=== PATIENT | male | born 1945 | race Caucasian/White ===

== ENCOUNTER 2019-05-22 14:45 | Inpatient (IN) | payer MEDICARE, OTHER ==
[~2019-05-22] VITALS: Ht 180.3 cm; Wt 66.2 kg
[2019-05-22 23:30] VITALS: BP 111/55
[2019-05-23] MEDS ORDERED: MORPHINE SULFATE 2 MG/ML CPJ (NOT FOR IM USE) IV PRN (00:15)
[2019-05-23] MEDS ORDERED: NITROGLYCERIN 0.4MG TABLET SL SL PRN (00:15)
[2019-05-23] MEDS ORDERED: ONDANSETRON HCL 4MG TABLET PO PRN (00:15)
[2019-05-23 04:00] VITALS: BP 96/58
[2019-05-23] MEDS ORDERED: ONDANSETRON HCL 4MG/2ML INJ IV PRN (04:00)
[2019-05-23] MEDS ORDERED: OMEP10CA5 PO (04:33)
[2019-05-23] MEDS ORDERED: CARB-31 PO (04:33)
[2019-05-23] MEDS: CEFTRIAXONE 1 G PREMIX 50 ML IV SCH (05:35)
[2019-05-23] MEDS: CARBIDOPA/LEVODOPA 10/100MG TABLET PO SCH ×3 (06:24→21:10)
[2019-05-23] MEDS: PANTOPRAZOLE 40MG DR TABLET PO SCH (06:24)
[2019-05-23 08:20] VITALS: BP 100/49
[2019-05-23] MEDS: HEPARIN 5000 UNITS/ML VIAL SUBCUT SCH ×2 (09:00→21:10)
[2019-05-23] MEDS ORDERED: METOPROLOL TARTRATE 25MG TABLET PO SCH (09:00)
[2019-05-23] MEDS: FERROUS SULFATE 325MG TABLET PO SCH ×2 (10:33→17:52)
[2019-05-23] MEDS: FOLIC ACID/VITAMIN B COMP W-C TABLET PO SCH (10:33)
[2019-05-23] MEDS: CALCIUM CARBONATE 1250MG TABLET (500MG ELEMENTAL CALCIUM) PO SCH ×2 (10:33→17:52)
[2019-05-23] MEDS ORDERED: AMLODIPINE 2.5MG TABLET PO SCH (11:00)
[2019-05-23 12:00] VITALS: BP 107/56
[2019-05-23] MEDS: HYDROCODONE/ACETAMINOPHEN 5/325MG TABLET PO PRN (14:30)
[2019-05-23 15:27] LABS: PROTHROMBIN TIME 10.1 sec (9.6-11.0)
[2019-05-23 15:32] LABS: BASOPHILS % 0.3 % (0.0-2.0); EOSINOPHILS % 0.2 % (0.0-5.0); HEMATOCRIT. 25.1 % (42.0-52.0); HEMOGLOBIN. 8.5 g/dL (14.0-18.0); LYMPHOCYTES % 9.3 % (20.0-50.0); MEAN CORPUSCULAR HEMOGLOBIN 32.6 pg (28.0-32.0); MEAN CORPUSCULAR VOLUME 96.9 fL (80.0-94.0); MEAN PLATELET VOLUME 8.3 fl (7.4-10.4); MONOCYTES % 8.4 % (2.0-8.0); NEUTROPHILS % 81.8 % (40.0-76.0); PLATELET 144 x1000/uL (130-400); RED BLOOD CELL COUNT 2.59 mill/uL (4.7-6.1); RED CELL DISTRIBUTION WIDTH 15.7 % (11.6-14.6)
[2019-05-23 16:00] VITALS: BP 117/55
[2019-05-23 20:00] VITALS: BP 112/52
[2019-05-23] MEDS: TEMAZEPAM 15MG CAPSULE PO PRN (22:12)
[2019-05-24] VITALS (9 sets, daily range): BP systolic 109–143; BP diastolic 49–78
[2019-05-24] MEDS: CEFTRIAXONE 1 G PREMIX 50 ML IV SCH (03:19)
[2019-05-24] MEDS: CARBIDOPA/LEVODOPA 10/100MG TABLET PO SCH ×3 (06:19→21:34)
[2019-05-24] MEDS: PANTOPRAZOLE 40MG DR TABLET PO SCH (06:20)
[2019-05-24] MEDS: AMLODIPINE 2.5MG TABLET PO SCH (09:14)
[2019-05-24] MEDS: FOLIC ACID/VITAMIN B COMP W-C TABLET PO SCH (09:14)
[2019-05-24] MEDS: FERROUS SULFATE 325MG TABLET PO SCH ×2 (09:14→17:04)
[2019-05-24] MEDS: HEPARIN 5000 UNITS/ML VIAL SUBCUT SCH ×2 (09:15→21:00)
[2019-05-24] MEDS: CALCIUM CARBONATE 1250MG TABLET (500MG ELEMENTAL CALCIUM) PO SCH ×2 (09:15→17:04)
[2019-05-24] MEDS: HYDROCODONE/ACETAMINOPHEN 5/325MG TABLET PO PRN ×3 (09:59→21:42)
[2019-05-24 12:12] LABS: BASOPHILS % 0.3 % (0.0-2.0); EOSINOPHILS % 0.2 % (0.0-5.0); HEMATOCRIT. 24.7 % (42.0-52.0); HEMOGLOBIN. 8.2 g/dL (14.0-18.0); LYMPHOCYTES % 11.3 % (20.0-50.0); MEAN CORPUSCULAR HEMOGLOBIN 31.9 pg (28.0-32.0); MEAN CORPUSCULAR VOLUME 96.5 fL (80.0-94.0); MEAN PLATELET VOLUME 7.8 fl (7.4-10.4); MONOCYTES % 6.2 % (2.0-8.0); PLATELET 150 x1000/uL (130-400); RED BLOOD CELL COUNT 2.56 mill/uL (4.7-6.1)
[2019-05-24 12:24] LABS: CHLORIDE 110 mEq/L (98-107)
[2019-05-24 12:33] LABS: PHOSPHORUS 2.3 mg/dL (2.5-4.9)
[2019-05-24] MEDS: SPIRONOLACTONE 25MG TABLET PO SCH (17:04)
[2019-05-24] MEDS: FUROSEMIDE 20MG TABLET PO SCH (21:00)
[2019-05-24] MEDS: ASCORBIC ACID 500 MG TABLET PO SCH (21:34)
[2019-05-25] VITALS (9 sets, daily range): BP systolic 97–133; BP diastolic 40–64
[2019-05-25] MEDS: CEFTRIAXONE 1 G PREMIX 50 ML IV SCH (04:57)
[2019-05-25] MEDS: SPIRONOLACTONE 25MG TABLET PO SCH ×2 (05:54→17:47)
[2019-05-25] MEDS: CARBIDOPA/LEVODOPA 10/100MG TABLET PO SCH ×3 (05:54→22:02)
[2019-05-25] MEDS: PANTOPRAZOLE 40MG DR TABLET PO SCH (05:55)
[2019-05-25] MEDS: FERROUS SULFATE 325MG TABLET PO SCH ×2 (07:50→17:47)
[2019-05-25] MEDS: HEPARIN 5000 UNITS/ML VIAL SUBCUT SCH ×2 (09:00→21:00)
[2019-05-25 09:54] LABS: HEMATOCRIT 26.8 % (42.0-52.0); HEMOGLOBIN 8.9 g/dL (14.0-18.0)
[2019-05-25] MEDS: ZINC SULFATE 220 MG ( 50 ) CAPSULE PO SCH (13:18)
[2019-05-25] MEDS: FOLIC ACID/VITAMIN B COMP W-C TABLET PO SCH (13:18)
[2019-05-25] MEDS: ASCORBIC ACID 500 MG TABLET PO SCH ×2 (13:19→22:02)
[2019-05-25] MEDS: HYDROCODONE/ACETAMINOPHEN 5/325MG TABLET PO PRN (13:19)
[2019-05-25] MEDS: FUROSEMIDE 20MG TABLET PO SCH ×2 (13:19→22:02)
[2019-05-25] MEDS: AMLODIPINE 2.5MG TABLET PO SCH (13:20)
[2019-05-25] MEDS: CALCIUM CARBONATE 1250MG TABLET (500MG ELEMENTAL CALCIUM) PO SCH ×2 (13:20→17:47)
[2019-05-25] MEDS: TEMAZEPAM 15MG CAPSULE PO PRN (22:43)
[2019-05-26] VITALS (8 sets, daily range): BP systolic 110–144; BP diastolic 48–60
[2019-05-26] MEDS: CEFTRIAXONE 1 G PREMIX 50 ML IV SCH (04:33)
[2019-05-26] MEDS: HYDROCODONE/ACETAMINOPHEN 5/325MG TABLET PO PRN ×2 (05:00→14:49)
[2019-05-26] MEDS: CARBIDOPA/LEVODOPA 10/100MG TABLET PO SCH ×3 (06:36→21:16)
[2019-05-26] MEDS: SPIRONOLACTONE 25MG TABLET PO SCH (06:37)
[2019-05-26 06:42] LABS: BASOPHILS % 0.5 % (0.0-2.0); EOSINOPHILS % 0.7 % (0.0-5.0); HEMATOCRIT. 26.3 % (42.0-52.0); HEMOGLOBIN. 8.8 g/dL (14.0-18.0); MEAN CORPUSCULAR HEMOGLOBIN 31.5 pg (28.0-32.0); MEAN CORPUSCULAR VOLUME 94.3 fL (80.0-94.0); MEAN PLATELET VOLUME 7.8 fl (7.4-10.4); MONOCYTES % 7.2 % (2.0-8.0); NEUTROPHILS % 81.6 % (40.0-76.0); PLATELET 171 x1000/uL (130-400); RED BLOOD CELL COUNT 2.79 mill/uL (4.7-6.1); RED CELL DISTRIBUTION WIDTH 16.1 % (11.6-14.6)
[2019-05-26 06:59] LABS: CHLORIDE 106 mEq/L (98-107)
[2019-05-26 07:06] LABS: PHOSPHORUS 2.2 mg/dL (2.5-4.9)
[2019-05-26] MEDS: HEPARIN 5000 UNITS/ML VIAL SUBCUT SCH ×2 (08:31→21:00)
[2019-05-26] MEDS: ZINC SULFATE 220 MG ( 50 ) CAPSULE PO SCH (09:02)
[2019-05-26] MEDS: CALCIUM CARBONATE 1250MG TABLET (500MG ELEMENTAL CALCIUM) PO SCH ×2 (09:02→17:00)
[2019-05-26] MEDS: PANTOPRAZOLE 40MG DR TABLET PO SCH (09:02)
[2019-05-26] MEDS: ASCORBIC ACID 500 MG TABLET PO SCH ×2 (09:03→21:16)
[2019-05-26] MEDS: FUROSEMIDE 20MG TABLET PO SCH (09:03)
[2019-05-26] MEDS: FERROUS SULFATE 325MG TABLET PO SCH ×2 (09:03→17:50)
[2019-05-26] MEDS: FOLIC ACID/VITAMIN B COMP W-C TABLET PO SCH (09:03)
[2019-05-26] MEDS: AMLODIPINE 2.5MG TABLET PO SCH (09:10)
[2019-05-26 11:57] LABS: BASOPHILS % 0.4 % (0.0-2.0); EOSINOPHILS % 0.5 % (0.0-5.0); HEMATOCRIT. 25.4 % (42.0-52.0); HEMOGLOBIN. 8.6 g/dL (14.0-18.0); MEAN CORPUSCULAR HEMOGLOBIN 31.8 pg (28.0-32.0); MEAN CORPUSCULAR VOLUME 94.3 fL (80.0-94.0); MEAN PLATELET VOLUME 7.3 fl (7.4-10.4); MONOCYTES % 6.4 % (2.0-8.0); NEUTROPHILS % 82.7 % (40.0-76.0); PLATELET 160 x1000/uL (130-400); RED CELL DISTRIBUTION WIDTH 15.8 % (11.6-14.6)
[2019-05-26] MEDS ORDERED: BUPIVACAINE/EPINEPH/PF 0.25%/0.0005 10ML ONE (15:13)
[2019-05-26] MEDS ORDERED: VANCOMYCIN HCL 1 GM/VIAL ONE (15:14)
[2019-05-26] MEDS ORDERED: BUPIVACAINE HCL/EPINEPHRINE/PF 0.5%/0.0005 10ML ONE (15:15)
[2019-05-26] MEDS ORDERED: LIDOCAINE HCL/PF 1% 10 MG/ML 5ML VIAL ONE (17:07)
[2019-05-26] MEDS ORDERED: MIDAZOLAM HCL 2 MG/2 ML VIAL ONE (17:07)
[2019-05-26] MEDS ORDERED: SODIUM CHLORIDE 0.9% 10ML VIAL ONE (17:07)
[2019-05-26] MEDS ORDERED: ROCURONIUM BROMIDE 10MG/ML VIAL 5ML IV ONE (17:07)
[2019-05-26] MEDS ORDERED: CEFAZOLIN SODIUM 1000MG/VIAL ONE (17:07)
[2019-05-26] MEDS ORDERED: NEOSTIGMINE METHYLSULFATE 1MG/ML 10 ML VIAL ONE (17:07)
[2019-05-26] MEDS ORDERED: FENTANYL CITRATE/PF 50MCG/ML 2ML VIAL ONE (17:07)
[2019-05-26] MEDS ORDERED: PROPOFOL 200MG/20ML VIAL IV ONE (17:07)
[2019-05-26] MEDS ORDERED: SUCCINYLCHOLINE CHLORIDE 200MG/10ML IV ONE (17:07)
[2019-05-26] MEDS ORDERED: GLYCOPYRROLATE 0.2 MG/ML 2ML VIAL ONE (17:07)
[2019-05-26] MEDS ORDERED: ONDANSETRON HCL 4MG/2ML INJ ONE (17:08)
[2019-05-26] MEDS ORDERED: PHENYLEPHRINE HCL 10 MG/ML 1ML (IV VIAL) IV ONE (17:08)
[2019-05-26] MEDS ORDERED: METOCLOPRAMIDE HCL 10MG/2ML VIAL ONE (17:08)
[2019-05-26] MEDS ORDERED: EPHEDRINE SULFATE 50MG/ML VIAL ONE (17:08)
[2019-05-26] MEDS ORDERED: SODIUM CHLORIDE 0.9% 1,000 ML IV ONE (18:22)
[2019-05-26] MEDS ORDERED: MORPHINE SULFATE 2 MG/ML CPJ (NOT FOR IM USE) IV PRN (18:30)
[2019-05-26] MEDS ORDERED: ONDANSETRON HCL 4MG/2ML INJ IV PRN (18:30)
[2019-05-26] MEDS: HYDROMORPHONE HCL/PF 2MG/ML CPJ IV PRN ×4 (18:55→19:28)
[2019-05-26] MEDS: VANCOMYCIN 1 G PREMIX 200 ML IV SCH (21:16)
[2019-05-26] MEDS: TEMAZEPAM 15MG CAPSULE PO PRN (21:17)
[2019-05-27] VITALS: BP 130/62
[2019-05-27] MEDS: HYDROMORPHONE HCL/PF 2MG/ML CPJ IV PRN (00:09)
[2019-05-27 04:00] VITALS: BP 108/50
[2019-05-27] MEDS: CEFTRIAXONE 1 G PREMIX 50 ML IV SCH (05:12)
[2019-05-27] MEDS: CARBIDOPA/LEVODOPA 10/100MG TABLET PO SCH ×3 (05:12→21:37)
[2019-05-27] MEDS: PANTOPRAZOLE 40MG DR TABLET PO SCH (05:12)
[2019-05-27 07:49] LABS: HEMATOCRIT. 27.3 % (42.0-52.0); HEMOGLOBIN. 9.2 g/dL (14.0-18.0); MEAN CORPUSCULAR HEMOGLOBIN 31.9 pg (28.0-32.0); MEAN CORPUSCULAR VOLUME 94.3 fL (80.0-94.0); MEAN PLATELET VOLUME 7.5 fl (7.4-10.4); PLATELET 160 x1000/uL (130-400); RED BLOOD CELL COUNT 2.89 mill/uL (4.7-6.1); RED CELL DISTRIBUTION WIDTH 15.6 % (11.6-14.6)
[2019-05-27 07:57] LABS: PHOSPHORUS 2.9 mg/dL (2.5-4.9)
[2019-05-27 08:00] VITALS: BP 95/44
[2019-05-27] MEDS: AMLODIPINE 2.5MG TABLET PO SCH (09:00)
[2019-05-27] MEDS: CALCIUM CARBONATE 1250MG TABLET (500MG ELEMENTAL CALCIUM) PO SCH ×2 (09:34→17:00)
[2019-05-27] MEDS: ASCORBIC ACID 500 MG TABLET PO SCH ×2 (09:34→21:37)
[2019-05-27] MEDS: FOLIC ACID/VITAMIN B COMP W-C TABLET PO SCH (09:34)
[2019-05-27] MEDS: ZINC SULFATE 220 MG ( 50 ) CAPSULE PO SCH (09:34)
[2019-05-27] MEDS: FERROUS SULFATE 325MG TABLET PO SCH ×2 (09:34→17:04)
[2019-05-27] MEDS: VANCOMYCIN 1 G PREMIX 200 ML IV SCH (09:37)
[2019-05-27] MEDS: HEPARIN 5000 UNITS/ML VIAL SUBCUT SCH ×2 (09:37→21:00)
[2019-05-27 12:00] VITALS: BP 103/44
[2019-05-27 14:09] LABS: PLATELET ESTIMATE NORMAL
[2019-05-27 16:00] VITALS: BP 100/51
[2019-05-27] MEDS: ACETAMINOPHEN 325MG TABLET PO PRN (18:23)
[2019-05-27 20:00] VITALS: BP 92/49
[2019-05-28] VITALS: BP 103/50
[2019-05-28] MEDS: ACETAMINOPHEN 325MG TABLET PO PRN (02:15)
[2019-05-28] MEDS: CEFTRIAXONE 1 G PREMIX 50 ML IV SCH (03:36)
[2019-05-28 04:00] VITALS: BP 106/51
[2019-05-28] MEDS: PANTOPRAZOLE 40MG DR TABLET PO SCH (06:45)
[2019-05-28] MEDS: CARBIDOPA/LEVODOPA 10/100MG TABLET PO SCH ×3 (06:45→23:32)
[2019-05-28 07:46] LABS: HEMATOCRIT. 27.1 % (42.0-52.0); HEMOGLOBIN. 9.3 g/dL (14.0-18.0); MEAN CORPUSCULAR HEMOGLOBIN 32.7 pg (28.0-32.0); MEAN CORPUSCULAR VOLUME 95.2 fL (80.0-94.0); PLATELET 120 x1000/uL (130-400); RED BLOOD CELL COUNT 2.84 mill/uL (4.7-6.1); RED CELL DISTRIBUTION WIDTH 15.8 % (11.6-14.6)
[2019-05-28] MEDS: ASCORBIC ACID 500 MG TABLET PO SCH ×2 (08:28→23:32)
[2019-05-28] MEDS: CALCIUM CARBONATE 1250MG TABLET (500MG ELEMENTAL CALCIUM) PO SCH ×2 (08:28→17:00)
[2019-05-28] MEDS: FERROUS SULFATE 325MG TABLET PO SCH ×2 (08:28→17:50)
[2019-05-28] MEDS: FOLIC ACID/VITAMIN B COMP W-C TABLET PO SCH (08:28)
[2019-05-28] MEDS: ZINC SULFATE 220 MG ( 50 ) CAPSULE PO SCH (08:28)
[2019-05-28] MEDS: AMLODIPINE 2.5MG TABLET PO SCH (08:29)
[2019-05-28] MEDS: HEPARIN 5000 UNITS/ML VIAL SUBCUT SCH ×2 (08:32→23:32)
[2019-05-28 12:00] VITALS: BP 120/55
[2019-05-28 13:12] LABS: PLATELET ESTIMATE SLIGHTLY DECREASED
[2019-05-28 20:42] VITALS: BP 95/58
[2019-05-28] MEDS: TEMAZEPAM 15MG CAPSULE PO PRN (23:32)
[2019-05-29] VITALS: BP 115/58
[2019-05-29 04:00] VITALS: BP 105/58
[2019-05-29] MEDS: CEFTRIAXONE 1 G PREMIX 50 ML IV SCH (04:33)
[2019-05-29] MEDS: CARBIDOPA/LEVODOPA 10/100MG TABLET PO SCH ×3 (06:23→22:32)
[2019-05-29] MEDS: PANTOPRAZOLE 40MG DR TABLET PO SCH (06:23)
[2019-05-29 08:00] VITALS: BP_SYST 132; BP_SYST 143; BP_DIAS 51; BP_DIAS 86
[2019-05-29 08:15] LABS: HEMATOCRIT. 25.8 % (42.0-52.0); HEMOGLOBIN. 8.9 g/dL (14.0-18.0); MEAN CORPUSCULAR HEMOGLOBIN 32.6 pg (28.0-32.0); MEAN CORPUSCULAR VOLUME 94.1 fL (80.0-94.0); MEAN PLATELET VOLUME 8.1 fl (7.4-10.4); PLATELET 143 x1000/uL (130-400); RED BLOOD CELL COUNT 2.74 mill/uL (4.7-6.1); RED CELL DISTRIBUTION WIDTH 15.8 % (11.6-14.6)
[2019-05-29] MEDS: FERROUS SULFATE 325MG TABLET PO SCH ×2 (08:59→17:41)
[2019-05-29] MEDS: FOLIC ACID/VITAMIN B COMP W-C TABLET PO SCH (08:59)
[2019-05-29] MEDS: ASCORBIC ACID 500 MG TABLET PO SCH ×2 (08:59→21:30)
[2019-05-29] MEDS: ZINC SULFATE 220 MG ( 50 ) CAPSULE PO SCH (08:59)
[2019-05-29] MEDS: AMLODIPINE 2.5MG TABLET PO SCH (09:03)
[2019-05-29] MEDS: HEPARIN 5000 UNITS/ML VIAL SUBCUT SCH ×2 (09:05→21:32)
[2019-05-29] MEDS: CALCIUM CARBONATE 1250MG TABLET (500MG ELEMENTAL CALCIUM) PO SCH ×2 (10:33→17:41)
[2019-05-29 12:00] VITALS: BP 119/62
[2019-05-29 13:40] LABS: PLATELET ESTIMATE NORMAL
[2019-05-29] MEDS ORDERED: IPRATROPIUM/ALBUTEROL 0.5-3(2.5)MG/3ML NEB HHN PRN (15:15)
[2019-05-29 16:00] VITALS: BP 95/62
[2019-05-29] MEDS: ACETAMINOPHEN 325MG TABLET PO PRN (17:41)
[2019-05-29 20:00] VITALS: BP 118/51
[2019-05-29] MEDS: GUAIFENESIN 600MG ER TABLET PO SCH (21:30)
[2019-05-29] MEDS: TEMAZEPAM 15MG CAPSULE PO PRN (21:31)
[2019-05-30] VITALS: BP 111/55
[2019-05-30] MEDS: IPRATROPIUM/ALBUTEROL 0.5-3(2.5)MG/3ML NEB HHN SCH ×3 (01:38→14:00)
[2019-05-30 04:00] VITALS: BP 114/47
[2019-05-30] MEDS: CEFTRIAXONE 1 G PREMIX 50 ML IV SCH (04:56)
[2019-05-30] MEDS: CARBIDOPA/LEVODOPA 10/100MG TABLET PO SCH ×2 (06:40→14:19)
[2019-05-30] MEDS: PANTOPRAZOLE 40MG DR TABLET PO SCH ×2 (06:40→14:20)
[2019-05-30 06:41] LABS: HEMATOCRIT. 26.8 % (42.0-52.0); HEMOGLOBIN. 9.1 g/dL (14.0-18.0); MEAN CORPUSCULAR HEMOGLOBIN 32.3 pg (28.0-32.0); MEAN CORPUSCULAR VOLUME 95.3 fL (80.0-94.0); MEAN PLATELET VOLUME 7.9 fl (7.4-10.4); PLATELET 142 x1000/uL (130-400); RED BLOOD CELL COUNT 2.82 mill/uL (4.7-6.1); RED CELL DISTRIBUTION WIDTH 16.3 % (11.6-14.6)
[2019-05-30 08:00] VITALS: BP 113/50
[2019-05-30 08:48] LABS: PLATELET ESTIMATE NORMAL
[2019-05-30 12:00] VITALS: BP 120/53
[2019-05-30] MEDS: GUAIFENESIN 600MG ER TABLET PO SCH (14:19)
[2019-05-30] MEDS: CALCIUM CARBONATE 1250MG TABLET (500MG ELEMENTAL CALCIUM) PO SCH ×2 (14:19→16:44)
[2019-05-30] MEDS: FERROUS SULFATE 325MG TABLET PO SCH ×2 (14:19→18:06)
[2019-05-30] MEDS: FOLIC ACID/VITAMIN B COMP W-C TABLET PO SCH (14:19)
[2019-05-30] MEDS: ZINC SULFATE 220 MG ( 50 ) CAPSULE PO SCH (14:20)
[2019-05-30] MEDS: AMLODIPINE 2.5MG TABLET PO SCH (14:20)
[2019-05-30] MEDS: ASCORBIC ACID 500 MG TABLET PO SCH (14:20)
[2019-05-30] MEDS: HEPARIN 5000 UNITS/ML VIAL SUBCUT SCH (14:21)
[2019-05-30 16:00] VITALS: BP 112/57
[2019-05-30 18:37] VITALS: BP 112/57
== END 2019-05-30 20:00 | DRG 480 ==
LOC: 6WST 14:45
PROVIDERS: ADMIT Internal Medicine; ATTEND Internal Medicine
PROC: 0KBV0ZZ Excision of Right Foot Muscle, Open Approach (ICD-10-PCS; principal; 2019-05-23)
PROC: 0HDNXZZ Extraction of Left Foot Skin, External Approach (ICD-10-PCS; 2019-05-23)
PROC: 0KBP0ZZ Excision of Left Hip Muscle, Open Approach (ICD-10-PCS; 2019-05-23)
PROC: 0KBN0ZZ Excision of Right Hip Muscle, Open Approach (ICD-10-PCS; 2019-05-23)
PROC: 30233N1 Transfusion of Nonautologous Red Blood Cells into Peripheral Vein, Percutaneous Approach (ICD-10-PCS; 2019-05-24)
PROC: 5A1D70Z Performance of Urinary Filtration, Intermittent, Less than 6 Hours Per Day (ICD-10-PCS; 2019-05-24)
PROC: 0QS604Z Reposition Right Upper Femur with Internal Fixation Device, Open Approach (ICD-10-PCS; 2019-05-26)
PROC: 5A1D70Z Performance of Urinary Filtration, Intermittent, Less than 6 Hours Per Day (ICD-10-PCS; 2019-05-27)
PROC: 5A1D70Z Performance of Urinary Filtration, Intermittent, Less than 6 Hours Per Day (ICD-10-PCS; 2019-05-28)
PROC: 5A1D70Z Performance of Urinary Filtration, Intermittent, Less than 6 Hours Per Day (ICD-10-PCS; 2019-05-30)
DX: S72.001A Fracture of unspecified part of neck of right femur, initial encounter for closed fracture (principal); L89.154 Pressure ulcer of sacral region, stage 4; E43 Unspecified severe protein-calorie malnutrition; I50.43 Acute on chronic combined systolic (congestive) and diastolic (congestive) heart failure; J96.00 Acute respiratory failure, unspecified whether with hypoxia or hypercapnia; N18.6 End stage renal disease; I13.2 Hypertensive heart and chronic kidney disease with heart failure and with stage 5 chronic kidney disease, or end stage renal disease; E87.1 Hypo-osmolality and hyponatremia; D62 Acute posthemorrhagic anemia; I42.9 Cardiomyopathy, unspecified; I48.20 Chronic atrial fibrillation, unspecified; Q21.1 Atrial septal defect; D63.8 Anemia in other chronic diseases classified elsewhere; E83.51 Hypocalcemia; G20 Parkinson's disease; I08.1 Rheumatic disorders of both mitral and tricuspid valves; D69.6 Thrombocytopenia, unspecified; F17.210 Nicotine dependence, cigarettes, uncomplicated; G62.9 Polyneuropathy, unspecified; I27.20 Pulmonary hypertension, unspecified; I73.9 Peripheral vascular disease, unspecified; R26.9 Unspecified abnormalities of gait and mobility; E87.8 Other disorders of electrolyte and fluid balance, not elsewhere classified; K21.9 Gastro-esophageal reflux disease without esophagitis; L97.519 Non-pressure chronic ulcer of other part of right foot with unspecified severity; Z53.9 Procedure and treatment not carried out, unspecified reason; S51.012A Laceration without foreign body of left elbow, initial encounter; S51.819A Laceration without foreign body of unspecified forearm, initial encounter; Y93.89 Activity, other specified; Y92.89 Other specified places as the place of occurrence of the external cause; Y99.8 Other external cause status; V58.4XXA Person boarding or alighting a pick-up truck or van injured in noncollision transport accident, initial encounter; Z82.3 Family history of stroke; Z82.49 Family history of ischemic heart disease and other diseases of the circulatory system; Z83.3 Family history of diabetes mellitus; Z88.0 Allergy status to penicillin; Z89.431 Acquired absence of right foot; Z99.2 Dependence on renal dialysis; Z99.81 Dependence on supplemental oxygen; Z68.20 Body mass index [BMI] 20.0-20.9, adult
CPT/HCPCS: 36415; 71045; 73502; 73552; 76000; 80048; 80053; 82040; 83036; 83735; 84100; 84134; 84443; 84484; 85014; 85018; 85025; 86850; 86900; 86920; 92523; 92610; 93005; 93306; 93970; 94640; 97110; 97162; 97530; C1713; C1893; J0171; J0330; J0690; J0696; J1170; J1644; J2250; J2370; J2405; J2704; J2710; J2765; J3010; J3370; J3490; J7040; J7620; P9016

== ENCOUNTER 2019-05-30 19:55 | Inpatient (IN) | payer MEDICARE, OTHER ==
[~2019-05-30] VITALS: Ht 180.3 cm; Wt 72.6 kg
[~2019-05-30 19:55] MED LIST: CARB-31 PO; OMEP10CA5 PO
[2019-05-30 20:00] VITALS: BP 122/56
[2019-05-30] MEDS ORDERED: HYDROMORPHONE HCL/PF 2MG/ML CPJ IV PRN (21:30)
[2019-05-30] MEDS ORDERED: ONDANSETRON HCL 4MG/2ML INJ IV PRN (21:30)
[2019-05-30] MEDS ORDERED: NITROGLYCERIN 0.4MG TABLET SL SL PRN (21:30)
[2019-05-30] MEDS ORDERED: IPRATROPIUM/ALBUTEROL 0.5-3(2.5)MG/3ML NEB HHN PRN (21:30)
[2019-05-30] MEDS ORDERED: ACETAMINOPHEN 325MG TABLET PO PRN (21:30)
[2019-05-30] MEDS: GUAIFENESIN 600MG ER TABLET PO SCH (22:10)
[2019-05-30] MEDS: ASCORBIC ACID 500 MG TABLET PO SCH (22:10)
[2019-05-30] MEDS: HEPARIN 5000 UNITS/ML VIAL SUBCUT SCH (22:11)
[2019-05-30] MEDS: TEMAZEPAM 15MG CAPSULE PO PRN (22:17)
[2019-05-30] MEDS: CARBIDOPA/LEVODOPA 10/100MG TABLET PO SCH (22:56)
[2019-05-31] MEDS: IPRATROPIUM/ALBUTEROL 0.5-3(2.5)MG/3ML NEB HHN SCH ×3 (01:26→20:58)
[2019-05-31] MEDS: PANTOPRAZOLE 40MG DR TABLET PO SCH (06:24)
[2019-05-31] MEDS: CARBIDOPA/LEVODOPA 10/100MG TABLET PO SCH ×3 (06:24→21:37)
[2019-05-31 07:58] VITALS: BP 105/47
[2019-05-31 08:09] LABS: BASOPHILS % 0.3 % (0.0-2.0); EOSINOPHILS % 0.7 % (0.0-5.0); HEMATOCRIT. 25.4 % (42.0-52.0); HEMOGLOBIN. 8.8 g/dL (14.0-18.0); LYMPHOCYTES % 9.1 % (20.0-50.0); MEAN CORPUSCULAR HEMOGLOBIN 32.9 pg (28.0-32.0); MONOCYTES % 10.5 % (2.0-8.0); NEUTROPHILS % 79.4 % (40.0-76.0); PLATELET 156 x1000/uL (130-400); RED BLOOD CELL COUNT 2.68 mill/uL (4.7-6.1); RED CELL DISTRIBUTION WIDTH 16.1 % (11.6-14.6)
[2019-05-31 08:25] LABS: CHLORIDE 103 mEq/L (98-107)
[2019-05-31] MEDS: AMLODIPINE 2.5MG TABLET PO SCH (09:00)
[2019-05-31] MEDS: ASCORBIC ACID 500 MG TABLET PO SCH ×2 (09:28→20:49)
[2019-05-31] MEDS: FOLIC ACID/VITAMIN B COMP W-C TABLET PO SCH (09:28)
[2019-05-31] MEDS: CALCIUM CARBONATE 1250MG TABLET (500MG ELEMENTAL CALCIUM) PO SCH ×2 (09:28→16:36)
[2019-05-31] MEDS: GUAIFENESIN 600MG ER TABLET PO SCH ×2 (09:28→20:49)
[2019-05-31] MEDS: ZINC SULFATE 220 MG ( 50 ) CAPSULE PO SCH (09:28)
[2019-05-31] MEDS: HYDROCODONE/ACETAMINOPHEN 5/325MG TABLET PO PRN ×2 (09:28→20:52)
[2019-05-31] MEDS: FERROUS SULFATE 325MG TABLET PO SCH ×2 (09:29→16:36)
[2019-05-31] MEDS: HEPARIN 5000 UNITS/ML VIAL SUBCUT SCH ×2 (09:29→20:49)
[2019-05-31 16:38] VITALS: BP 112/48
[2019-05-31 20:00] VITALS: BP 108/49
[2019-06-01] MEDS: IPRATROPIUM/ALBUTEROL 0.5-3(2.5)MG/3ML NEB HHN SCH ×4 (02:10→21:06)
[2019-06-01] MEDS: CARBIDOPA/LEVODOPA 10/100MG TABLET PO SCH ×3 (06:18→22:08)
[2019-06-01] MEDS: PANTOPRAZOLE 40MG DR TABLET PO SCH (06:18)
[2019-06-01 07:27] LABS: HEMATOCRIT. 24.9 % (42.0-52.0); HEMOGLOBIN. 8.4 g/dL (14.0-18.0); MEAN CORPUSCULAR HEMOGLOBIN 32.4 pg (28.0-32.0); MEAN CORPUSCULAR VOLUME 96.2 fL (80.0-94.0); MEAN PLATELET VOLUME 7.8 fl (7.4-10.4); PLATELET 128 x1000/uL (130-400); RED BLOOD CELL COUNT 2.58 mill/uL (4.7-6.1); RED CELL DISTRIBUTION WIDTH 16.8 % (11.6-14.6)
[2019-06-01 07:39] LABS: PHOSPHORUS 2.6 mg/dL (2.5-4.9)
[2019-06-01 07:50] VITALS: BP 110/59
[2019-06-01] MEDS: ZINC SULFATE 220 MG ( 50 ) CAPSULE PO SCH (08:21)
[2019-06-01] MEDS: FOLIC ACID/VITAMIN B COMP W-C TABLET PO SCH (08:22)
[2019-06-01] MEDS: ASCORBIC ACID 500 MG TABLET PO SCH ×2 (08:22→22:08)
[2019-06-01] MEDS: AMLODIPINE 2.5MG TABLET PO SCH (08:22)
[2019-06-01] MEDS: GUAIFENESIN 600MG ER TABLET PO SCH ×2 (08:22→22:08)
[2019-06-01] MEDS: CALCIUM CARBONATE 1250MG TABLET (500MG ELEMENTAL CALCIUM) PO SCH ×2 (08:22→17:00)
[2019-06-01] MEDS: FERROUS SULFATE 325MG TABLET PO SCH ×2 (08:22→17:00)
[2019-06-01] MEDS: HEPARIN 5000 UNITS/ML VIAL SUBCUT SCH ×2 (09:33→22:09)
[2019-06-01 11:40] LABS: PLATELET ESTIMATE SLIGHTLY DECREASED
[2019-06-01 20:00] VITALS: BP_SYST 110; BP_SYST 133; BP_DIAS 46; BP_DIAS 80
[2019-06-01] MEDS: TEMAZEPAM 15MG CAPSULE PO PRN (22:22)
[2019-06-02] MEDS: IPRATROPIUM/ALBUTEROL 0.5-3(2.5)MG/3ML NEB HHN SCH ×4 (02:45→20:17)
[2019-06-02] MEDS: PANTOPRAZOLE 40MG DR TABLET PO SCH (06:49)
[2019-06-02] MEDS: CARBIDOPA/LEVODOPA 10/100MG TABLET PO SCH ×3 (06:50→21:34)
[2019-06-02 07:10] LABS: HEMATOCRIT. 24.6 % (42.0-52.0); HEMOGLOBIN. 8.4 g/dL (14.0-18.0); MEAN CORPUSCULAR HEMOGLOBIN 32.6 pg (28.0-32.0); MEAN CORPUSCULAR VOLUME 95.3 fL (80.0-94.0); PLATELET 142 x1000/uL (130-400); RED BLOOD CELL COUNT 2.58 mill/uL (4.7-6.1); RED CELL DISTRIBUTION WIDTH 16.3 % (11.6-14.6)
[2019-06-02 07:14] LABS: PHOSPHORUS 3.1 mg/dL (2.5-4.9)
[2019-06-02 07:18] LABS: T4 FREE 0.74 ng/dL (0.76-1.46)
[2019-06-02] MEDS: HYDROCODONE/ACETAMINOPHEN 5/325MG TABLET PO PRN (07:24)
[2019-06-02 07:25] LABS: FERRITIN 1229 ng/mL (22-322)
[2019-06-02 07:26] LABS: FOLIC ACID (FOLATE) SERUM >20 ng/mL ng/mL (>5.38)
[2019-06-02 07:38] LABS: VITAMIN B12 SERUM 623 pg/mL (211-911)
[2019-06-02] MEDS: AMLODIPINE 2.5MG TABLET PO SCH (09:00)
[2019-06-02 09:06] VITALS: BP 103/49
[2019-06-02] MEDS: ZINC SULFATE 220 MG ( 50 ) CAPSULE PO SCH (09:08)
[2019-06-02] MEDS: FOLIC ACID/VITAMIN B COMP W-C TABLET PO SCH (09:08)
[2019-06-02] MEDS: HEPARIN 5000 UNITS/ML VIAL SUBCUT SCH ×2 (09:08→21:34)
[2019-06-02] MEDS: ASCORBIC ACID 500 MG TABLET PO SCH ×2 (09:08→21:34)
[2019-06-02] MEDS: GUAIFENESIN 600MG ER TABLET PO SCH ×2 (09:09→21:34)
[2019-06-02] MEDS: CALCIUM CARBONATE 1250MG TABLET (500MG ELEMENTAL CALCIUM) PO SCH ×2 (09:09→17:10)
[2019-06-02] MEDS: FERROUS SULFATE 325MG TABLET PO SCH ×2 (09:09→17:10)
[2019-06-02 12:26] LABS: PLATELET ESTIMATE NORMAL
[2019-06-02] MEDS: LACTULOSE 20G/30ML UDC PO SCH ×2 (15:02→21:34)
[2019-06-02 20:00] VITALS: BP 67/53
[2019-06-02] MEDS: EPOETIN ALFA 10000UNITS/ML VIAL SUBCUT SCH (21:34)
[2019-06-03] MEDS: CARBIDOPA/LEVODOPA 10/100MG TABLET PO SCH ×3 (06:30→21:50)
[2019-06-03] MEDS: LACTULOSE 20G/30ML UDC PO SCH ×3 (06:30→21:58)
[2019-06-03] MEDS: FAMOTIDINE 20MG TABLET PO SCH (06:30)
[2019-06-03] MEDS: IPRATROPIUM/ALBUTEROL 0.5-3(2.5)MG/3ML NEB HHN SCH ×3 (07:33→20:08)
[2019-06-03 08:00] VITALS: BP 138/54
[2019-06-03] MEDS: CALCIUM CARBONATE 1250MG TABLET (500MG ELEMENTAL CALCIUM) PO SCH ×2 (08:24→17:28)
[2019-06-03] MEDS: HYDROCODONE/ACETAMINOPHEN 5/325MG TABLET PO PRN ×2 (08:25→21:51)
[2019-06-03] MEDS: GUAIFENESIN 600MG ER TABLET PO SCH ×2 (08:26→21:50)
[2019-06-03] MEDS: HEPARIN 5000 UNITS/ML VIAL SUBCUT SCH ×2 (08:26→21:50)
[2019-06-03] MEDS: ASCORBIC ACID 500 MG TABLET PO SCH ×2 (08:26→21:50)
[2019-06-03] MEDS: ZINC SULFATE 220 MG ( 50 ) CAPSULE PO SCH (08:26)
[2019-06-03] MEDS: AMLODIPINE 2.5MG TABLET PO SCH (08:26)
[2019-06-03] MEDS: FERROUS SULFATE 325MG TABLET PO SCH ×2 (08:26→17:28)
[2019-06-03] MEDS: FOLIC ACID/VITAMIN B COMP W-C TABLET PO SCH (08:26)
[2019-06-03 13:27] LABS: HEMATOCRIT. 25.8 % (42.0-52.0); HEMOGLOBIN. 8.6 g/dL (14.0-18.0); MEAN CORPUSCULAR HEMOGLOBIN 32.2 pg (28.0-32.0); MEAN CORPUSCULAR VOLUME 96.6 fL (80.0-94.0); MEAN PLATELET VOLUME 7.9 fl (7.4-10.4); PLATELET 158 x1000/uL (130-400); RED BLOOD CELL COUNT 2.67 mill/uL (4.7-6.1); RED CELL DISTRIBUTION WIDTH 16.4 % (11.6-14.6)
[2019-06-03] MEDS: LEVOTHYROXINE SODIUM 25MCG TABLET PO SCH (15:14)
[2019-06-03 17:00] LABS: PLATELET ESTIMATE NORMAL
[2019-06-03 20:00] VITALS: BP 106/54
[2019-06-04] MEDS: IPRATROPIUM/ALBUTEROL 0.5-3(2.5)MG/3ML NEB HHN SCH ×4 (02:09→21:42)
[2019-06-04] MEDS: LACTULOSE 20G/30ML UDC PO SCH ×3 (05:54→22:00)
[2019-06-04] MEDS: CARBIDOPA/LEVODOPA 10/100MG TABLET PO SCH ×3 (05:54→23:09)
[2019-06-04] MEDS: FAMOTIDINE 20MG TABLET PO SCH (06:00)
[2019-06-04] MEDS: LEVOTHYROXINE SODIUM 25MCG TABLET PO SCH (06:01)
[2019-06-04 07:36] LABS: HEMATOCRIT. 25.7 % (42.0-52.0); HEMOGLOBIN. 8.6 g/dL (14.0-18.0); MEAN CORPUSCULAR HEMOGLOBIN 31.9 pg (28.0-32.0); MEAN CORPUSCULAR VOLUME 95.5 fL (80.0-94.0); PLATELET 167 x1000/uL (130-400); RED BLOOD CELL COUNT 2.69 mill/uL (4.7-6.1); RED CELL DISTRIBUTION WIDTH 16.3 % (11.6-14.6)
[2019-06-04 07:53] LABS: CHLORIDE 107 mEq/L (98-107)
[2019-06-04 08:00] LABS: PHOSPHORUS 2.5 mg/dL (2.5-4.9)
[2019-06-04] MEDS: FOLIC ACID/VITAMIN B COMP W-C TABLET PO SCH (08:33)
[2019-06-04] MEDS: FERROUS SULFATE 325MG TABLET PO SCH ×2 (08:33→16:27)
[2019-06-04] MEDS: HEPARIN 5000 UNITS/ML VIAL SUBCUT SCH ×2 (08:33→23:08)
[2019-06-04] MEDS: GUAIFENESIN 600MG ER TABLET PO SCH ×2 (08:34→23:10)
[2019-06-04] MEDS: ZINC SULFATE 220 MG ( 50 ) CAPSULE PO SCH (08:34)
[2019-06-04] MEDS: CALCIUM CARBONATE 1250MG TABLET (500MG ELEMENTAL CALCIUM) PO SCH ×2 (08:34→16:27)
[2019-06-04] MEDS: ASCORBIC ACID 500 MG TABLET PO SCH ×2 (08:34→23:10)
[2019-06-04] MEDS: AMLODIPINE 2.5MG TABLET PO SCH (08:34)
[2019-06-04 08:40] VITALS: BP 113/49
[2019-06-04] MEDS ORDERED: TRIAMCINOLONE ACETONIDE 0.1% CREAM 15GM TOP ONE (10:00)
[2019-06-04] MEDS ORDERED: ETHYL CHLORIDE CAN TOP ONE (10:00)
[2019-06-04] MEDS ORDERED: BUPIVACAINE HCL 0.5% (5MG/ML) 50ML IR SCH (11:00)
[2019-06-04] MEDS ORDERED: LIDOCAINE HCL/PF 1% 10 MG/ML 5ML VIAL INL NR (11:00)
[2019-06-04] MEDS ORDERED: TRIAMCINOLONE ACETONIDE 40MG/ML 1ML VIAL IM SCH (11:00)
[2019-06-04 13:19] LABS: PLATELET ESTIMATE NORMAL
[2019-06-04] MEDS: ZINC OXIDE 20% OINT 30GM TOP SCH (16:49)
[2019-06-04 20:00] VITALS: BP 117/61
[2019-06-04] MEDS: EPOETIN ALFA 10000UNITS/ML VIAL SUBCUT SCH (23:09)
[2019-06-05] MEDS: IPRATROPIUM/ALBUTEROL 0.5-3(2.5)MG/3ML NEB HHN SCH ×4 (01:22→20:10)
[2019-06-05 03:35] VITALS: BP 119/62
[2019-06-05] MEDS: FAMOTIDINE 20MG TABLET PO SCH (06:11)
[2019-06-05] MEDS: LACTULOSE 20G/30ML UDC PO SCH ×2 (06:11→13:04)
[2019-06-05] MEDS: LEVOTHYROXINE SODIUM 25MCG TABLET PO SCH (06:11)
[2019-06-05] MEDS: CARBIDOPA/LEVODOPA 10/100MG TABLET PO SCH ×3 (06:14→21:39)
[2019-06-05 06:39] LABS: CHLORIDE 109 mEq/L (98-107)
[2019-06-05 06:45] LABS: PHOSPHORUS 2.2 mg/dL (2.5-4.9)
[2019-06-05 06:46] LABS: HEMATOCRIT. 24.7 % (42.0-52.0); HEMOGLOBIN. 8.3 g/dL (14.0-18.0); MEAN CORPUSCULAR HEMOGLOBIN 33.1 pg (28.0-32.0); PLATELET 160 x1000/uL (130-400); RED CELL DISTRIBUTION WIDTH 16.5 % (11.6-14.6)
[2019-06-05 08:00] VITALS: BP 119/66
[2019-06-05] MEDS: ZINC SULFATE 220 MG ( 50 ) CAPSULE PO SCH (09:00)
[2019-06-05] MEDS: HEPARIN 5000 UNITS/ML VIAL SUBCUT SCH ×2 (09:00→21:39)
[2019-06-05] MEDS: FOLIC ACID/VITAMIN B COMP W-C TABLET PO SCH (09:01)
[2019-06-05] MEDS: FERROUS SULFATE 325MG TABLET PO SCH ×2 (09:01→16:12)
[2019-06-05] MEDS: CALCIUM CARBONATE 1250MG TABLET (500MG ELEMENTAL CALCIUM) PO SCH ×2 (09:01→16:12)
[2019-06-05] MEDS: ASCORBIC ACID 500 MG TABLET PO SCH ×2 (09:01→21:39)
[2019-06-05] MEDS: AMLODIPINE 2.5MG TABLET PO SCH (09:02)
[2019-06-05] MEDS: ZINC OXIDE 20% OINT 30GM TOP SCH ×2 (09:14→16:36)
[2019-06-05] MEDS: GUAIFENESIN 600MG ER TABLET PO SCH ×2 (09:14→21:39)
[2019-06-05 09:46] VITALS: BP 112/40
[2019-06-05 10:19] LABS: PLATELET ESTIMATE NORMAL
[2019-06-05 14:55] VITALS: BP 111/19
[2019-06-05 14:56] VITALS: BP_SYST 109; BP_SYST 148; BP_DIAS 48; BP_DIAS 56
[2019-06-05] MEDS ORDERED: LACTULOSE 20G/30ML UDC PO SCH (18:00)
[2019-06-05 20:00] VITALS: BP 108/56
[2019-06-06] MEDS: IPRATROPIUM/ALBUTEROL 0.5-3(2.5)MG/3ML NEB HHN SCH ×4 (02:02→22:20)
[2019-06-06] MEDS: CARBIDOPA/LEVODOPA 10/100MG TABLET PO SCH ×2 (06:03→15:21)
[2019-06-06] MEDS: LEVOTHYROXINE SODIUM 25MCG TABLET PO SCH (06:03)
[2019-06-06] MEDS: FAMOTIDINE 20MG TABLET PO SCH (06:03)
[2019-06-06 08:00] VITALS: BP 121/73
[2019-06-06 08:18] LABS: HEMATOCRIT. 24.8 % (42.0-52.0); HEMOGLOBIN. 8.3 g/dL (14.0-18.0); MEAN CORPUSCULAR HEMOGLOBIN 32.2 pg (28.0-32.0); MEAN CORPUSCULAR VOLUME 96.7 fL (80.0-94.0); MEAN PLATELET VOLUME 7.9 fl (7.4-10.4); PLATELET 161 x1000/uL (130-400); RED BLOOD CELL COUNT 2.57 mill/uL (4.7-6.1); RED CELL DISTRIBUTION WIDTH 16.6 % (11.6-14.6)
[2019-06-06 08:42] LABS: CHLORIDE 108 mEq/L (98-107)
[2019-06-06 08:50] LABS: PHOSPHORUS 2.3 mg/dL (2.5-4.9)
[2019-06-06] MEDS: AMLODIPINE 2.5MG TABLET PO SCH (09:00)
[2019-06-06] MEDS: FOLIC ACID/VITAMIN B COMP W-C TABLET PO SCH (10:00)
[2019-06-06] MEDS: CALCIUM CARBONATE 1250MG TABLET (500MG ELEMENTAL CALCIUM) PO SCH ×2 (10:01→17:47)
[2019-06-06] MEDS: ZINC SULFATE 220 MG ( 50 ) CAPSULE PO SCH (10:01)
[2019-06-06] MEDS: FERROUS SULFATE 325MG TABLET PO SCH ×2 (10:01→17:47)
[2019-06-06] MEDS: ASCORBIC ACID 500 MG TABLET PO SCH (10:01)
[2019-06-06] MEDS: HEPARIN 5000 UNITS/ML VIAL SUBCUT SCH (10:06)
[2019-06-06] MEDS: ZINC OXIDE 20% OINT 30GM TOP SCH ×2 (10:07→17:49)
[2019-06-06 11:50] LABS: HEPATITIS B SURFACE ANTIGEN NEGATIVE
[2019-06-06 12:20] LABS: HEPATITIS A AB IGM NEGATIVE (NEGATIVE)
[2019-06-06] MEDS ORDERED: BENZONATATE 100MG CAPSULE PO PRN (15:30)
[2019-06-06 17:46] LABS: PLATELET ESTIMATE NORMAL
[2019-06-06 20:00] VITALS: BP 86/53
[2019-06-07] VITALS: BP 105/42
[2019-06-07] MEDS: LACTULOSE 20G/30ML UDC PO SCH ×3 (00:01→16:43)
[2019-06-07] MEDS: CARBIDOPA/LEVODOPA 10/100MG TABLET PO SCH ×4 (00:01→21:00)
[2019-06-07] MEDS: HYDROCODONE/ACETAMINOPHEN 5/325MG TABLET PO PRN ×3 (00:01→23:29)
[2019-06-07] MEDS: ASCORBIC ACID 500 MG TABLET PO SCH ×3 (00:01→20:43)
[2019-06-07] MEDS: GUAIFENESIN 600MG ER TABLET PO SCH ×3 (00:01→20:43)
[2019-06-07] MEDS: EPOETIN ALFA 10000UNITS/ML VIAL SUBCUT SCH (00:02)
[2019-06-07] MEDS: HEPARIN 5000 UNITS/ML VIAL SUBCUT SCH ×3 (00:02→20:43)
[2019-06-07] MEDS: IPRATROPIUM/ALBUTEROL 0.5-3(2.5)MG/3ML NEB HHN SCH ×3 (03:22→21:20)
[2019-06-07 04:07] LABS: 25-HYDROXY VITAMIN D3 11 ng/mL (.)
[2019-06-07] MEDS: FAMOTIDINE 20MG TABLET PO SCH (06:03)
[2019-06-07] MEDS: LEVOTHYROXINE SODIUM 25MCG TABLET PO SCH (06:03)
[2019-06-07 08:00] VITALS: BP 103/43
[2019-06-07] MEDS: FERROUS SULFATE 325MG TABLET PO SCH ×2 (08:42→16:43)
[2019-06-07] MEDS: CALCIUM CARBONATE 1250MG TABLET (500MG ELEMENTAL CALCIUM) PO SCH ×3 (08:42→17:24)
[2019-06-07] MEDS: ZINC OXIDE 20% OINT 30GM TOP SCH ×2 (08:42→16:43)
[2019-06-07] MEDS: ZINC SULFATE 220 MG ( 50 ) CAPSULE PO SCH (08:42)
[2019-06-07] MEDS: FOLIC ACID/VITAMIN B COMP W-C TABLET PO SCH (08:42)
[2019-06-07 20:00] VITALS: BP 100/55
[2019-06-08] MEDS: IPRATROPIUM/ALBUTEROL 0.5-3(2.5)MG/3ML NEB HHN SCH ×4 (00:35→20:44)
[2019-06-08] MEDS: CARBIDOPA/LEVODOPA 10/100MG TABLET PO SCH ×3 (05:50→21:44)
[2019-06-08] MEDS: LEVOTHYROXINE SODIUM 25MCG TABLET PO SCH (06:01)
[2019-06-08] MEDS: FAMOTIDINE 20MG TABLET PO SCH (06:02)
[2019-06-08 08:00] VITALS: BP 108/44
[2019-06-08 08:49] LABS: HEMATOCRIT. 24.6 % (42.0-52.0); MEAN CORPUSCULAR HEMOGLOBIN 32.2 pg (28.0-32.0); MEAN CORPUSCULAR VOLUME 98.4 fL (80.0-94.0); MEAN PLATELET VOLUME 7.7 fl (7.4-10.4); PLATELET 145 x1000/uL (130-400); RED CELL DISTRIBUTION WIDTH 17.7 % (11.6-14.6)
[2019-06-08] MEDS: LACTULOSE 20G/30ML UDC PO SCH ×2 (09:00→16:00)
[2019-06-08] MEDS: HEPARIN 5000 UNITS/ML VIAL SUBCUT SCH ×2 (09:22→21:44)
[2019-06-08] MEDS: ASCORBIC ACID 500 MG TABLET PO SCH ×2 (09:23→21:44)
[2019-06-08] MEDS: FERROUS SULFATE 325MG TABLET PO SCH ×2 (09:23→16:20)
[2019-06-08] MEDS: FOLIC ACID/VITAMIN B COMP W-C TABLET PO SCH (09:23)
[2019-06-08] MEDS: ZINC SULFATE 220 MG ( 50 ) CAPSULE PO SCH (09:23)
[2019-06-08] MEDS: CALCIUM CARBONATE 1250MG TABLET (500MG ELEMENTAL CALCIUM) PO SCH (09:23)
[2019-06-08] MEDS: ZINC OXIDE 20% OINT 30GM TOP SCH ×2 (09:24→16:19)
[2019-06-08 10:27] LABS: PHOSPHORUS 2.2 mg/dL (2.5-4.9)
[2019-06-08] MEDS: GUAIFENESIN 600MG ER TABLET PO SCH ×2 (10:29→21:44)
[2019-06-08] MEDS ORDERED: POTASSIUM-SODIUM PHOSPHATE POWDER PACKET PO SCH (11:00)
[2019-06-08] MEDS: ERGOCALCIFEROL 50000UNITS CAPSULE PO SCH (11:02)
[2019-06-08 14:56] LABS: PLATELET ESTIMATE NORMAL
[2019-06-08 20:00] VITALS: BP 112/52
[2019-06-09] MEDS: IPRATROPIUM/ALBUTEROL 0.5-3(2.5)MG/3ML NEB HHN SCH ×4 (01:45→21:28)
[2019-06-09] MEDS: HYDROCODONE/ACETAMINOPHEN 5/325MG TABLET PO PRN ×2 (01:55→18:00)
[2019-06-09] MEDS: LEVOTHYROXINE SODIUM 25MCG TABLET PO SCH (06:08)
[2019-06-09] MEDS: FAMOTIDINE 20MG TABLET PO SCH (06:08)
[2019-06-09] MEDS: CARBIDOPA/LEVODOPA 10/100MG TABLET PO SCH ×3 (06:08→23:31)
[2019-06-09 07:14] LABS: PHOSPHORUS 2.4 mg/dL (2.5-4.9)
[2019-06-09 07:46] LABS: HEMATOCRIT. 22.9 % (42.0-52.0); HEMOGLOBIN. 7.6 g/dL (14.0-18.0); MEAN CORPUSCULAR HEMOGLOBIN 32.6 pg (28.0-32.0); MEAN CORPUSCULAR VOLUME 98.1 fL (80.0-94.0); PLATELET 143 x1000/uL (130-400); RED BLOOD CELL COUNT 2.33 mill/uL (4.7-6.1); RED CELL DISTRIBUTION WIDTH 17.1 % (11.6-14.6)
[2019-06-09 08:00] VITALS: BP 105/60
[2019-06-09] MEDS: FOLIC ACID/VITAMIN B COMP W-C TABLET PO SCH (08:11)
[2019-06-09] MEDS: ASCORBIC ACID 500 MG TABLET PO SCH ×2 (08:11→21:13)
[2019-06-09] MEDS: FERROUS SULFATE 325MG TABLET PO SCH ×2 (08:11→18:00)
[2019-06-09] MEDS: HEPARIN 5000 UNITS/ML VIAL SUBCUT SCH (08:11)
[2019-06-09] MEDS: GUAIFENESIN 600MG ER TABLET PO SCH ×2 (08:12→21:13)
[2019-06-09] MEDS: ZINC SULFATE 220 MG ( 50 ) CAPSULE PO SCH (08:12)
[2019-06-09] MEDS: LACTULOSE 20G/30ML UDC PO SCH ×2 (08:20→18:00)
[2019-06-09] MEDS: ZINC OXIDE 20% OINT 30GM TOP SCH ×2 (08:21→17:00)
[2019-06-09 13:56] LABS: PLATELET ESTIMATE NORMAL
[2019-06-09 17:05] VITALS: BP 90/51
[2019-06-09 17:19] VITALS: BP 100/47
[2019-06-09 17:34] VITALS: BP 102/49
[2019-06-09 20:00] VITALS: BP 98/44
[2019-06-09] MEDS ORDERED: PHYTONADIONE 10 MG in DEXTROSE 5% WATER 49 ML IV NR (20:00)
[2019-06-09 20:27] LABS: HEMATOCRIT. 26.4 % (42.0-52.0); HEMOGLOBIN. 8.9 g/dL (14.0-18.0); MEAN CORPUSCULAR VOLUME 97.8 fL (80.0-94.0); MEAN PLATELET VOLUME 7.5 fl (7.4-10.4); PLATELET 143 x1000/uL (130-400); RED CELL DISTRIBUTION WIDTH 15.8 % (11.6-14.6)
[2019-06-09 21:02] LABS: PLATELET ESTIMATE NORMAL
[2019-06-10] MEDS: IPRATROPIUM/ALBUTEROL 0.5-3(2.5)MG/3ML NEB HHN SCH ×4 (03:03→21:25)
[2019-06-10] MEDS: FAMOTIDINE 20MG TABLET PO SCH (05:47)
[2019-06-10] MEDS: LEVOTHYROXINE SODIUM 25MCG TABLET PO SCH (05:47)
[2019-06-10] MEDS: CARBIDOPA/LEVODOPA 10/100MG TABLET PO SCH ×3 (05:47→22:55)
[2019-06-10 07:07] LABS: HEMATOCRIT. 25.2 % (42.0-52.0); HEMOGLOBIN. 8.4 g/dL (14.0-18.0); MEAN CORPUSCULAR HEMOGLOBIN 32.4 pg (28.0-32.0); MEAN CORPUSCULAR VOLUME 97.6 fL (80.0-94.0); MEAN PLATELET VOLUME 7.8 fl (7.4-10.4); PLATELET 135 x1000/uL (130-400); RED BLOOD CELL COUNT 2.58 mill/uL (4.7-6.1); RED CELL DISTRIBUTION WIDTH 16.4 % (11.6-14.6)
[2019-06-10 07:19] LABS: PHOSPHORUS 2.5 mg/dL (2.5-4.9)
[2019-06-10 07:52] LABS: PROTHROMBIN TIME 10.7 sec (9.6-11.0)
[2019-06-10 08:00] VITALS: BP 112/45
[2019-06-10] MEDS: FERROUS SULFATE 325MG TABLET PO SCH ×2 (08:41→18:02)
[2019-06-10] MEDS: FOLIC ACID/VITAMIN B COMP W-C TABLET PO SCH (08:41)
[2019-06-10] MEDS: GUAIFENESIN 600MG ER TABLET PO SCH ×2 (08:41→21:30)
[2019-06-10] MEDS: ZINC SULFATE 220 MG ( 50 ) CAPSULE PO SCH (08:41)
[2019-06-10] MEDS: LACTULOSE 20G/30ML UDC PO SCH ×2 (08:41→22:52)
[2019-06-10] MEDS: ASCORBIC ACID 500 MG TABLET PO SCH ×2 (08:41→21:30)
[2019-06-10] MEDS: ZINC OXIDE 20% OINT 30GM TOP SCH ×2 (08:48→18:08)
[2019-06-10 16:04] VITALS: BP 105/45
[2019-06-10] MEDS: HYDROCODONE/ACETAMINOPHEN 5/325MG TABLET PO PRN (16:10)
[2019-06-10 17:12] LABS: PLATELET ESTIMATE NORMAL
[2019-06-10 20:00] VITALS: BP 118/50
[2019-06-10] MEDS: EPOETIN ALFA 10000UNITS/ML VIAL SUBCUT SCH (21:32)
[2019-06-11] MEDS: IPRATROPIUM/ALBUTEROL 0.5-3(2.5)MG/3ML NEB HHN SCH ×4 (01:02→20:53)
[2019-06-11] MEDS: CARBIDOPA/LEVODOPA 10/100MG TABLET PO SCH ×3 (06:26→22:53)
[2019-06-11] MEDS: LEVOTHYROXINE SODIUM 25MCG TABLET PO SCH (06:26)
[2019-06-11] MEDS: FAMOTIDINE 20MG TABLET PO SCH (06:26)
[2019-06-11 07:09] LABS: HEMATOCRIT. 24.8 % (42.0-52.0); HEMOGLOBIN. 8.4 g/dL (14.0-18.0); MEAN CORPUSCULAR HEMOGLOBIN 33.1 pg (28.0-32.0); MEAN PLATELET VOLUME 7.9 fl (7.4-10.4); PLATELET 146 x1000/uL (130-400); RED BLOOD CELL COUNT 2.53 mill/uL (4.7-6.1)
[2019-06-11 07:54] VITALS: BP 105/51
[2019-06-11] MEDS: FOLIC ACID/VITAMIN B COMP W-C TABLET PO SCH (08:22)
[2019-06-11] MEDS: HYDROCODONE/ACETAMINOPHEN 5/325MG TABLET PO PRN (08:22)
[2019-06-11] MEDS: ZINC SULFATE 220 MG ( 50 ) CAPSULE PO SCH (08:22)
[2019-06-11] MEDS: GUAIFENESIN 600MG ER TABLET PO SCH ×2 (08:23→22:53)
[2019-06-11] MEDS: FERROUS SULFATE 325MG TABLET PO SCH ×2 (08:23→17:01)
[2019-06-11] MEDS: ASCORBIC ACID 500 MG TABLET PO SCH ×2 (08:23→22:53)
[2019-06-11 08:39] LABS: CHLORIDE 108 mEq/L (98-107)
[2019-06-11 08:47] LABS: PHOSPHORUS 2.6 mg/dL (2.5-4.9)
[2019-06-11] MEDS: ZINC OXIDE 20% OINT 30GM TOP SCH ×2 (08:57→17:01)
[2019-06-11] MEDS: LACTULOSE 20G/30ML UDC PO SCH ×2 (13:49→22:53)
[2019-06-11 14:37] LABS: PLATELET ESTIMATE NORMAL
[2019-06-11 20:00] VITALS: BP 109/52
[2019-06-12] MEDS: IPRATROPIUM/ALBUTEROL 0.5-3(2.5)MG/3ML NEB HHN SCH ×4 (01:22→20:33)
[2019-06-12] MEDS: CARBIDOPA/LEVODOPA 10/100MG TABLET PO SCH ×3 (06:50→22:11)
[2019-06-12] MEDS: FAMOTIDINE 20MG TABLET PO SCH (06:50)
[2019-06-12] MEDS: LEVOTHYROXINE SODIUM 25MCG TABLET PO SCH (06:50)
[2019-06-12] MEDS: LACTULOSE 20G/30ML UDC PO SCH ×3 (06:50→22:10)
[2019-06-12] MEDS ORDERED: HYDROCODONE/ACETAMINOPHEN 5/325MG TABLET PO PRN (07:45)
[2019-06-12 08:00] VITALS: BP 91/50
[2019-06-12] MEDS: ASCORBIC ACID 500 MG TABLET PO SCH ×2 (08:30→22:11)
[2019-06-12] MEDS: FOLIC ACID/VITAMIN B COMP W-C TABLET PO SCH (08:30)
[2019-06-12] MEDS: GUAIFENESIN 600MG ER TABLET PO SCH ×2 (08:30→22:11)
[2019-06-12] MEDS: FERROUS SULFATE 325MG TABLET PO SCH ×2 (08:30→16:31)
[2019-06-12] MEDS: ZINC OXIDE 20% OINT 30GM TOP SCH ×2 (08:30→16:31)
[2019-06-12] MEDS: ZINC SULFATE 220 MG ( 50 ) CAPSULE PO SCH (08:30)
[2019-06-12 20:00] VITALS: BP 107/37
[2019-06-12] MEDS: EPOETIN ALFA 10000UNITS/ML VIAL SUBCUT SCH (22:13)
[2019-06-12] MEDS: CARVEDILOL 3.125 MG TABLET PO SCH (22:20)
[2019-06-13] MEDS: IPRATROPIUM/ALBUTEROL 0.5-3(2.5)MG/3ML NEB HHN SCH ×4 (02:05→20:11)
[2019-06-13] MEDS: CARBIDOPA/LEVODOPA 10/100MG TABLET PO SCH ×3 (05:52→21:56)
[2019-06-13] MEDS: LEVOTHYROXINE SODIUM 25MCG TABLET PO SCH (05:52)
[2019-06-13] MEDS: FAMOTIDINE 20MG TABLET PO SCH (05:52)
[2019-06-13] MEDS: LACTULOSE 20G/30ML UDC PO SCH ×3 (06:42→21:56)
[2019-06-13 06:50] LABS: HEMATOCRIT. 25.3 % (42.0-52.0); HEMOGLOBIN. 8.4 g/dL (14.0-18.0); MEAN CORPUSCULAR HEMOGLOBIN 32.5 pg (28.0-32.0); MEAN CORPUSCULAR VOLUME 98.5 fL (80.0-94.0); MEAN PLATELET VOLUME 7.7 fl (7.4-10.4); PLATELET 137 x1000/uL (130-400); RED BLOOD CELL COUNT 2.57 mill/uL (4.7-6.1); RED CELL DISTRIBUTION WIDTH 16.7 % (11.6-14.6)
[2019-06-13 07:48] LABS: PHOSPHORUS 2.3 mg/dL (2.5-4.9)
[2019-06-13 08:11] VITALS: BP 95/50
[2019-06-13] MEDS: GUAIFENESIN 600MG ER TABLET PO SCH ×2 (08:42→21:56)
[2019-06-13] MEDS: ASCORBIC ACID 500 MG TABLET PO SCH ×2 (08:42→21:56)
[2019-06-13] MEDS: FOLIC ACID/VITAMIN B COMP W-C TABLET PO SCH (08:42)
[2019-06-13] MEDS: FERROUS SULFATE 325MG TABLET PO SCH ×2 (08:42→16:19)
[2019-06-13] MEDS: ZINC SULFATE 220 MG ( 50 ) CAPSULE PO SCH (08:42)
[2019-06-13] MEDS: CARVEDILOL 3.125 MG TABLET PO SCH ×2 (08:43→21:57)
[2019-06-13] MEDS: ZINC OXIDE 20% OINT 30GM TOP SCH ×2 (08:44→16:19)
[2019-06-13 12:10] LABS: PLATELET ESTIMATE NORMAL
[2019-06-13 20:00] VITALS: BP 105/46
[2019-06-14] MEDS: IPRATROPIUM/ALBUTEROL 0.5-3(2.5)MG/3ML NEB HHN SCH ×3 (00:51→20:59)
[2019-06-14] MEDS: CARBIDOPA/LEVODOPA 10/100MG TABLET PO SCH ×3 (06:01→23:00)
[2019-06-14] MEDS: LEVOTHYROXINE SODIUM 25MCG TABLET PO SCH (06:01)
[2019-06-14] MEDS: LACTULOSE 20G/30ML UDC PO SCH ×3 (06:01→22:00)
[2019-06-14] MEDS: FAMOTIDINE 20MG TABLET PO SCH (06:01)
[2019-06-14 07:33] LABS: HEMATOCRIT. 26.9 % (42.0-52.0); HEMOGLOBIN. 8.8 g/dL (14.0-18.0); MEAN CORPUSCULAR HEMOGLOBIN 32.6 pg (28.0-32.0); MEAN CORPUSCULAR VOLUME 99.9 fL (80.0-94.0); MEAN PLATELET VOLUME 7.7 fl (7.4-10.4); PLATELET 142 x1000/uL (130-400); RED BLOOD CELL COUNT 2.69 mill/uL (4.7-6.1); RED CELL DISTRIBUTION WIDTH 17.8 % (11.6-14.6)
[2019-06-14 08:07] VITALS: BP 110/46
[2019-06-14] MEDS: FERROUS SULFATE 325MG TABLET PO SCH ×2 (08:42→17:03)
[2019-06-14] MEDS: ASCORBIC ACID 500 MG TABLET PO SCH ×2 (08:42→23:00)
[2019-06-14] MEDS: GUAIFENESIN 600MG ER TABLET PO SCH ×2 (08:42→23:00)
[2019-06-14] MEDS: FOLIC ACID/VITAMIN B COMP W-C TABLET PO SCH (08:42)
[2019-06-14] MEDS: ZINC SULFATE 220 MG ( 50 ) CAPSULE PO SCH (08:42)
[2019-06-14] MEDS: CARVEDILOL 3.125 MG TABLET PO SCH ×2 (08:43→23:00)
[2019-06-14] MEDS: ZINC OXIDE 20% OINT 30GM TOP SCH ×2 (08:43→17:03)
[2019-06-14] MEDS ORDERED: NA PHOS,M-B/NA PHOS,DI-BA ENEMA 118ML PR NR (16:00)
[2019-06-14 20:00] VITALS: BP 120/54
[2019-06-14 20:07] LABS: PLATELET ESTIMATE NORMAL
[2019-06-14 23:00] VITALS: BP 108/58
[2019-06-14] MEDS: EPOETIN ALFA 10000UNITS/ML VIAL SUBCUT SCH (23:01)
[2019-06-15] MEDS: IPRATROPIUM/ALBUTEROL 0.5-3(2.5)MG/3ML NEB HHN SCH (00:58)
[2019-06-15] MEDS: CARBIDOPA/LEVODOPA 10/100MG TABLET PO SCH (05:45)
[2019-06-15] MEDS: LACTULOSE 20G/30ML UDC PO SCH (05:50)
[2019-06-15] MEDS: LEVOTHYROXINE SODIUM 25MCG TABLET PO SCH (06:02)
[2019-06-15] MEDS: FAMOTIDINE 20MG TABLET PO SCH (06:02)
[2019-06-15 08:17] VITALS: BP 122/60
[2019-06-15] MEDS: FERROUS SULFATE 325MG TABLET PO SCH (08:45)
[2019-06-15] MEDS: ASCORBIC ACID 500 MG TABLET PO SCH (08:45)
[2019-06-15] MEDS: GUAIFENESIN 600MG ER TABLET PO SCH (08:45)
[2019-06-15] MEDS: ZINC OXIDE 20% OINT 30GM TOP SCH (08:45)
[2019-06-15] MEDS: CARVEDILOL 3.125 MG TABLET PO SCH (08:45)
[2019-06-15 09:47] VITALS: BP 120/54
[2019-06-15] MEDS: FOLIC ACID/VITAMIN B COMP W-C TABLET PO SCH (10:24)
[2019-06-15] MEDS: ZINC SULFATE 220 MG ( 50 ) CAPSULE PO SCH (10:24)
[2019-06-15] MEDS: ERGOCALCIFEROL 50000UNITS CAPSULE PO SCH (10:24)
== END 2019-06-15 11:45 | DRG 535 ==
LOC: UNDOADMIN 21:18
PROVIDERS: ADMIT Physical Medicine & Rehabilitation Spinal Cord Injury Medicine; ATTEND Internal Medicine
DX: S72.141A Displaced intertrochanteric fracture of right femur, initial encounter for closed fracture (principal); N18.6 End stage renal disease; E43 Unspecified severe protein-calorie malnutrition; G93.41 Metabolic encephalopathy; J18.9 Pneumonia, unspecified organism; I50.22 Chronic systolic (congestive) heart failure; I48.20 Chronic atrial fibrillation, unspecified; E11.52 Type 2 diabetes mellitus with diabetic peripheral angiopathy with gangrene; I96 Gangrene, not elsewhere classified; I13.2 Hypertensive heart and chronic kidney disease with heart failure and with stage 5 chronic kidney disease, or end stage renal disease; I42.9 Cardiomyopathy, unspecified; Z99.2 Dependence on renal dialysis; W18.39XA Other fall on same level, initial encounter; Y93.89 Activity, other specified; Y92.098 Other place in other non-institutional residence as the place of occurrence of the external cause; Y99.8 Other external cause status; E11.22 Type 2 diabetes mellitus with diabetic chronic kidney disease; E11.42 Type 2 diabetes mellitus with diabetic polyneuropathy; G20 Parkinson's disease; Z88.0 Allergy status to penicillin; D63.8 Anemia in other chronic diseases classified elsewhere; D69.6 Thrombocytopenia, unspecified; E11.621 Type 2 diabetes mellitus with foot ulcer; E83.51 Hypocalcemia; I08.1 Rheumatic disorders of both mitral and tricuspid valves; I27.20 Pulmonary hypertension, unspecified
CPT/HCPCS: 36415; 71045; 73502; 80048; 80053; 80076; 80307; 82140; 82306; 82533; 82607; 82728; 82746; 83540; 83550; 83735; 84100; 84134; 84439; 84443; 84481; 85025; 86376; 86705; 86709; 86803; 86850; 86900; 86920; 87340; 92523; 92610; 93005; 93970; 94640; 97110; 97116; 97162; 97167; 97530; 97535; 97542; C1893; J0885; J1644; J2405; J3301; J3430; J3490; J7060; J7620; P9016; A5200